=== PATIENT | female | born 1945 | race Caucasian/White ===

== ENCOUNTER 2025-03-09 23:19 | Inpatient (IN) | payer OTHER, SELFPAY ==
[2025-03-09] VITALS (11 sets, daily range): BP systolic 118–134; BP diastolic 71–95
[2025-03-09 17:12] LABS: Hematocrit 21.3 % (37.0-47.0); Mean Corp Hgb Conc. 28.2 g/dL (33.0-37.0); Mean Corpuscular Hgb 19.4 pg (27.0-31.0); Mean Corpuscular Volume 68.9 fL (81.0-99.0); Mean Platelet Volume 9.7 fL (7.4-10.4); Platelet Count 510 10^3/uL (130-400); Red Blood Cell Count 3.09 10^6/uL (4.20-5.40); Red Cell Dist. Width 19.8 % (11.5-14.5); White Blood Cell Count 7.9 10^3/uL (4.8-10.8)
[2025-03-09 17:17] LABS: ALT (SGPT) 12 U/L (0-35); AST (SGOT) 19 U/L (14-36); Albumin 4.1 g/dl (3.5-5.0); Alkaline Phosphatase 63 U/L (38-126); Blood Urea Nitrogen 15 mg/dl (7-17); Carbon Dioxide 22 mmol/L (22-30); Chloride 109 mmol/L (98-107); Glucose 115 mg/dl (70-99); Potassium 4.1 mmol/L (3.5-5.1); Sodium 138 mmol/L (135-145); Total Bilirubin 0.8 mg/dl (0.2-1.3); Total Protein 6.5 g/dl (6.3-8.2); eGFR > 60.00
[2025-03-09 17:36] LABS: Troponin I < 0.012 ng/ml
[2025-03-09 17:43] LABS: % Basophils 0.5 % (0-2); % Eosinophils 0.6 % (0-6); % Immature Granulocytes 0.3 % (0-0.5); % Lymphocytes 20.9 % (20.5-51.1); % Monocytes 9.4 % (1.7-9.3); % Neutrophils 68.3 % (42.2-75.2); Absolute Eosinophils 0.1 10^3/uL (0-0.7); Absolute Lymphocytes 1.7 10^3/uL (1.2-3.4); Absolute Monocytes 0.7 10^3/uL (0.1-0.6); Absolute Neutrophils 5.4 10^3/uL (1.4-6.5); Anisocytosis 2+; Hypochromasia 2+; Macrocytosis 2+; Normal RBC Morphology No; Nucleated Red Blood Cells % 0 %; Ovalocytes 1+; Poikilocytosis 1+; Tear Drop Red Blood Cells 1+
--- NOTE | 2025-03-09 19:53 | ED.GENMED ---
History of Present Illness
General
Chief Complaint: Cardiac Symptoms
Time Seen by Provider: 03/09/25 17:57
History of Present Illness
History of Present Illness:
Patient is a 79-year-old woman with history of atrial fibrillation not on anticoagulation, hypertension, hyperlipidemia presenting to the emergency department with cough and shortness of breath. Patient states for the past few weeks she has had a
chronic cough. Has also been short of breath especially upon exertion. She has also had night sweats. No weight loss. She also had vague chest and back pain. She denies any chest pain. No nausea vomiting. No hemoptysis. She does have a
history of a lung nodule that she supposed to be followed up outpatient. This is never happened to her before
Phy Exam
Physical Exam
Physical Exam:
GENERAL: in no acute distress
HEENT: normocephalic, extraocular movements intact, moist oral mucosa
NECK: normal inspection
RESPIRATORY: no respiratory distress, clear to auscultation bilaterally
CARDIOVASCULAR: regular rate and rhythm,
ABDOMEN/: soft, non-distended, non-tender to palpation, no rebound or guarding, right flank tenderness palpation
EXTREMITIES: non-tender, no edema/swelling
NEUROLOGIC: awake and alert, moves all extremities
SKIN: warm
Course
Orders/Labs/Results
Orders:
Orders
03/09/25 16:38
Electrocardiogram (*1) Urgent
Reason for Study: Chest Pain
EKG- Treatment ONCE
03/09/25 16:52
Complete Blood Count/With Diff Urgent
Comprehensive Metabolic Panel Urgent
Troponin I Urgent
03/09/25 18:13
Blood Bank Products [* Blood Bank Products] Urgent
Blood Bank Products: *Packed RBC Leuko(PRBC's)
Quantity: 1
Transfuse Today: Yes
Reason: Anemia
CT Pe/abd/pel W Urgent
Reason For Exam: sob, flank pain
03/09/25 18:56
Type+Screen Urgent
03/09/25 19:29
ABO2 Urgent
BBK Wristband Number:
Associate notified that ABO2 has been ordered: [id number]
Date: 03/09/25
Time: 19:16
Mold Swabber ID: [id number]
03/09/25 19:44
Urinalysis Reflex To Culture Urgent
Date Specimen was Collected: 03/09/25
Time Specimen was Collected: 16:38
Urine Microscopic Reflex Cult Urgent
Urine Culture Urgent
LEIA Source: U
Specimen Description:
Date Specimen was Collected: 03/09/25
Time Specimen was Collected: 16:38
Abnormal Lab Results
03/09/25 03/09/25 03/09/25
16:52 18:56 19:44
RBC 3.09 L 10^6/uL
(4.20-5.40)
Hgb 6.0 L* g/dL
(12.0-16.0)
Hct 21.3 L %
(37.0-47.0)
MCV 68.9 L fL
(81.0-99.0)
MCH 19.4 L pg
(27.0-31.0)
MCHC 28.2 L g/dL
(33.0-37.0)
RDW 19.8 H %
(11.5-14.5)
Plt Count 510 H 10^3/uL
(130-400)
Absolute Monos (auto) 0.7 H 10^3/uL
(0.1-0.6)
Monocytes % 9.4 H %
(1.7-9.3)
Chloride 109 H mmol/L
(98-107)
Glucose 115 H mg/dl
(70-99)
Leukocyte Esterase Rfl 3+ A
(Negative)
Urine WBC (Reflex) 30-40 A /HPF
(0-5)
Urine Bacteria (Reflex) Many A
(Negative)
Crossmatch IS Only See Detail
03/09/25 16:52
03/09/25 16:52
Vital Signs
Initial and Last Documented VS:
Initial Vital Signs
Temp Pulse Resp BP Pulse Ox
98.5 F 80 16 134/74 98
03/09/25 16:33 03/09/25 16:33 03/09/25 16:33 03/09/25 16:33 03/09/25 16:33
Last Documented Vital Signs
Temp Pulse Resp BP Pulse Ox
98.5 F 77 16 121/79 98
03/09/25 21:05 03/09/25 21:05 03/09/25 21:05 03/09/25 21:05 03/09/25 21:05
MDM/Problems Addressed
Differential Diagnosis Includes:
Patient is a 79-year-old woman presenting to the emergency department with few months of cough shortness of breath and night sweats. On arrival vitals are unremarkable and exam is reassuring. Differential is broad but consists of malignancy, PE,
anemia, atypical ACS. Blood work obtained prior to my evaluation does show hemoglobin of 6 with low MCV. She does have abnormal RBC morphology. Troponin is negative. Will obtain CT PE as well as CT abdomen pelvis.
*Critical Care Note
Total Time (30-74mins, 75-104mins- exclusive of procedures): Not Applicable
Update Note
Update Note:
Urine does have some WBC and leuk though it is slightly contaminated. Patient with no symptoms other than flank pain. She would prefer to hold off on the cultures and starting antibiotics. CT's PE negative and CT abdomen pelvis with constipation.
Regarding patient's hemoglobin I did offer patient transfusion and discharge or admission. After shared decision making given patient's symptoms will admit for repeat hemoglobin check to see if patient needs any additional RBC and possible
hematology consult given the abnormal RBC morphology. Discussed with hospitalist who accepted patient to their service
ED Attending Note
-
Portions of this chart may have been created with voice recognition software.� Occasional wrong word or��sound alike� substitutions may have occurred due to the inherent limitations of voice recognition software.
Discharge Plan
Departure
Patient Disposition: Admit
Date of Disposition: 03/09/25
Time of Disposition: 21:54
Presentation/result/management discussed w/ accepting MD/DO: Hospitalist
Discharge Problem:
Anemia
Referrals:
NONE,* [Family Provider] -
Interventions
Interventions:
*Risk Screen - Suicide Last Done: 03/09/25 16:33
*General Assessment Last Done: 03/09/25 18:57
*Neglect/Abuse Screening Last Done: 03/09/25 16:33
*ED- Fall Risk Assessment Last Done: 03/09/25 18:57
*ED COVID-19 Vaccine History Last Done: 03/09/25 18:57
ED- Pulmonary Assessment Last Done: 03/09/25 19:12
ED- Cardiac Assessment Last Done: 03/09/25 19:12
Discharge Date and Time
Print Language: PERUVIAN
[2025-03-09 19:55] LABS: Urine Albumin Negative (Neg - Trace); Urine Bilirubin Negative (Negative); Urine Character Clear (Clear); Urine Color Yellow; Urine Glucose Negative (Negative); Urine Ketone Negative (Negative); Urine Leukocyte 3+ (Negative); Urine Nitrite Negative (Negative); Urine Occult Blood Negative (Negative); Urine Urobilinogen Negative (Neg - 1+)
[2025-03-09 20:17] LABS: Urine Bacteria Many (Negative); Urine Red Blood Cell 0-2 /HPF (0-2); Urine White Cell 30-40 /HPF (0-5)
--- NOTE | 2025-03-09 22:25 | HPS.HSE ---
Addendum entered and electronically signed by Librado Osullivan DO 03/09/25 22:48:
Nursing reviewed / confirmed meds with via phone.
Usual HTN / IBS regimen ordered.
Original Note:
Family Physician
-
Family Physician: * NONE
Chief Complaint
-
Cough, SOB
History of Present Illness
Patient is a 79y F with PMH significant for hypertension and IBS-D who presents to ED complaining of cough, SOB and edema over a period of months. Patient states that she has had chronic, hacking, on-productive cough for several months. Since
October of this year, she has noted shortness of breath that occurs with activity. Over the past 4 weeks or so, she has noted some swelling in the feet and ankles. Given this constellation of symptoms, patient presented to the ED for further
evaluation.
Initial labs here revealed Hgb = 6 with patient denying any prior history of anemia. We have no prior records / labs / etc here. Patient states that she had labs done last in October - unfortunately she does not have these records.
She also does not have a list of her current meds.
Patient denies any gross evidence of bleeding recently including epistaxis, hemoptysis, hematemesis or hematochezia / melena.
Medical History
Past Medical History
Past Medical History: Reports Other
Additional Past Medical History:
Hypertension
IBS-D
Palpitations / PACs
Hiatal Hernia / GERD
Past Surgical History: Reports Other
Additional Past Surgical History:
Cholecystectomy
R Elbow Surgery x 4
Social History
Tobacco: Non-smoker
Alcohol: None
Drug: None
Family History
Family History: Adopted
Allergies / Home Medications
Allergies reflects when Allergies were last updated in [facility].
Home Medications with original date entered in [facility]
Allergy/Medication List:
Allergies
Allergy/AdvReac Type Severity Reaction Status Date / Time
No Known Allergies Allergy Verified 03/09/25 18:48
Home Medications
Unobtainable 03/09/25
Review of Systems
-
History Source: Patient
A 12 point ROS was completed and negative except as noted: Yes
Constitutional: Reports Fatigue; Denies Fever or Chills
EENT: Denies Sore Throat
Respiratory: Reports Cough and Trouble Breathing; Denies Hemoptysis
Cardiac: Reports Palpitations; Denies Chest Pain or Syncope
Abdomen/GI: Denies Abdominal Pain, Nausea, Vomiting, Diarrhea, Bloody Stools or Black Stools
: Denies Dysuria, Frequency, Flank Pain or Bleeding
Musculoskeletal: Reports Edema; Denies Joint Pain
Neurological: Denies Dizzy or Headache
Psych: Denies Depression or Anxiety
Physical Exam
Vital Signs
Vital Signs
Temp Pulse Resp BP Pulse Ox
98.5 F 77 16 121/79 98
03/09/25 21:05 03/09/25 21:05 03/09/25 21:05 03/09/25 21:05 03/09/25 21:05
Physical Exam
General: Other (79y F in no distress.)
HEENT: Moist mucous membranes and PERRLA
Respiratory: Clear; No Wheezes, Rales or Rhonchi
Cardiac: S1/S2, Regular Rhythm and Murmur (II/ ROXANNA)
GI: Soft, Non Tender, Non Distended and Normal Bowel Sounds
Musculoskeletal: No Clubbing, No Cyanosis and Other (Trace pedal edema.)
Neuro: AO x 3
Laboratory Results
-
03/09/25 16:52
03/09/25 16:52
Laboratory Results
Total Bilirubin 0.8 mg/dl (0.2-1.3) 03/09/25 16:52
AST 19 U/L (14-36) 03/09/25 16:52
ALT 12 U/L (0-35) 03/09/25 16:52
Alkaline Phosphatase 63 U/L (38-126) 03/09/25 16:52
Troponin I < 0.012 ng/ml 03/09/25 16:52
Impression/Plan
-
A/P: Patient is a 79y F with PMH significant for hypertension and IBS-D who presents to ED complaining of months of cough, dyspnea with exertion and LE edema.
Symptomatic Anemia
- Admit for further evaluation and treatment.
- Microcytic anemia - check iron studies, ferritin, etc.
- Heme test stools - especially given noted hiatal hernia on CT scan.
- 1 unit PRBCs ordered in the ED.
- Follow H&H and provide additional transfusion if needed.
- GI evaluation for possible endoscopic examination.
- Try to obtain prior records for review.
CEBALLOS
LE Edema
- Mild but progressive symptoms - potentially due to worsening edema.
- Check Echo for further evaluation.
- Follow I/Os, daily weights, etc.
Benign Hypertension
- Stable. Need to reconcile medications and then reorder as appropriate.
- Patient states that will bring meds in the AM.
IBS-D
- Chronic diarrhea s/p cholecystectomy.
- Patient maintained on chronic med - but does not know the name / dose.
- Reorder once confirmed.
DVT Prophylaxis: SCDs
Code Status: Full
[2025-03-10] VITALS (11 sets, daily range): BP systolic 129–158; BP diastolic 70–93; BMI 25.2
[2025-03-10] MEDS: ZANAFLEX 1 MG PO ×2 (00:59→21:45)
--- NOTE | 2025-03-10 02:10 | PTCARENOTE ---
Patient arrived from ED, via stretcher. OOB from stretcher to bed independently. Patient with no history of falls. VSS. Patient denies pain. Patient presenting with frequent, dry and nonproductive cough. Medications verified. Patient informed to
supply Colestipol from home due to pharmacy not carrying the medication; per patient, she will have her bring in the medication from home. Patient belongings accounted for, including a couple of hundred dollars in r[employer]. This RN did strongly
suggested sending patient's valuables to security but, patient refused. Patient's purse with ritchie, placed in the closet, in the room. Patient oriented to room. Bed in lowest position. Call gregg and personal belongings within reach.
[2025-03-10] MEDS: TESSALON PERLES 100 MG PO (05:42)
[2025-03-10 06:40] LABS: Reticulocyte Count 1.5 % (0.4-2.8)
[2025-03-10 06:53] LABS: Iron 23 ug/dl (37-170)
[2025-03-10 07:02] LABS: Percent Saturation 4 % (20-50); Total Iron Binding Capacity 465 ug/dl (265-497)
[2025-03-10 07:21] LABS: Blood Urea Nitrogen 10 mg/dl (7-17); Calcium 8.8 mg/dl (8.4-10.2); Carbon Dioxide 22 mmol/L (22-30); Chloride 112 mmol/L (98-107); Estimated Creatinine Clearance 54 ml/min; Glucose 100 mg/dl (70-99); Potassium 3.7 mmol/L (3.5-5.1); Sodium 140 mmol/L (135-145); eGFR > 60.00
[2025-03-10 07:26] LABS: Hematocrit 22.5 % (37.0-47.0); Hemoglobin 6.9 g/dL (12.0-16.0); Mean Corp Hgb Conc. 30.7 g/dL (33.0-37.0); Mean Corpuscular Hgb 21.8 pg (27.0-31.0); Mean Corpuscular Volume 71.2 fL (81.0-99.0); Mean Platelet Volume 10.1 fL (7.4-10.4); Platelet Count 428 10^3/uL (130-400); Red Blood Cell Count 3.16 10^6/uL (4.20-5.40); Red Cell Dist. Width 22.2 % (11.5-14.5); White Blood Cell Count 6.4 10^3/uL (4.8-10.8)
[2025-03-10 07:30] LABS: Ferritin 4.1 ng/ml (11.1-264.0)
[2025-03-10] MEDS: DIOVAN 320 MG PO (08:44)
[2025-03-10] MEDS: PROTONIX IV 40 MG IV (08:45)
[2025-03-10] MEDS: TOPROL XL 50 MG PO (08:45)
[2025-03-10] MEDS: NSS (PRESERVATIVE FREE) 10 ML IV (08:45)
--- NOTE | 2025-03-10 10:18 | W.PN.HOSP.TC ---
Today's Communication/Plan
-
transfuse 2 units pRBC
apprec GI
Assessment / Plan
Assessment / Plan
pt is a 79 year old female
Symptomatic Anemia--labs consistent with iron deficiency--patient just had endoscopy and colonoscopy last year [facility] ----no plans for endoscopy or colonoscopy at this time--received 1 unit of packed red blood cells with hemoglobin
improvement to 6.9 from 6.0--will transfuse 2 more units
CEBALLOS/LE Edema--likely from symptomatic anemia--Check Echo for further evaluation if still in house
Essential Hypertension- Stable. Need to reconcile medications and then reorder as appropriate- Patient states that will bring meds in the AM.
IBS-D--Chronic diarrhea s/p cholecystectomy-- Patient maintained on chronic med
DVT Proph-- SCDs
Code Status-- Full
Anticipated Discharge: Within 24 hours
Subjective/Interval History
-
Date of Service: March 10, 2025
pt without c/o--no bleeding that she admits to
Objective Data
-
Labs:
Laboratory Results
03/10/25
06:34
WBC 6.4
Hgb 6.9 L*
Hct 22.5 L
Plt Count 428 H
Sodium 140
Potassium 3.7
Chloride 112 H
Carbon Dioxide 22
BUN 10
Creatinine 0.7
Glucose 100 H
Calcium 8.8
Vital Signs:
max temp for 24 hours
03/10/25
00:54
Temp 99.1 F
Vital Signs
Temp Pulse Resp BP Pulse Ox
98.6 F 88 17 143/85 96
03/10/25 07:20 03/10/25 07:20 03/10/25 07:20 03/10/25 07:20 03/10/25 07:20
I&O
03/09/25 03/10/25 03/11/25
06:59 06:59 06:59
Intake Total 490 / 490
Balance 490 / 490
Review of Systems
-
All other systems: Reviewed and negative
Physical Exam
-
General: Well Developed, Well Nourished and No Apparent Distress
HEENT: Normocephalic and Atraumatic
Respiratory: Clear to Auscultation; Negative Wheezes or Rhonchi
Cardiac: Regular Rhythm and S1/S2; Negative Murmur
GI: Soft, Nontender, Nondistended and Normal Bowel Sounds
Musculoskeletal: No Clubbing, No Cyanosis, No Edema and Other (malformed right elbow)
Neuro: Awake
--- NOTE | 2025-03-10 12:45 | CON.GI ---
Consultation
-
Date/Time Consultation Requested: 03/10/2025
Date/Time Consultation Performed: 03/10/2025
Performing Provider: Rusty Crenshaw
Reason for Consultation: anemia
Medical History
Chief Complaint / HPI
Chief Complaint: anemia
History of Present Illness:
79 year-old woman with h/o afib not on anticoagulation, HTN, and hyperlipidemia p/w symptomatic anemia w/ dyspnea on exertion. She denies melena, rectal bleeding, or vomiting. Takes NSAID occasionally (every 2 weeks or so). She reports having
unremarkable EGD/colonoscopy in recent past (within 1 year ago but later stated otherwise).
Past Medical History
Past Medical History: GERD, HTN and Hypercholesterolemia
Past Surgical History: Cholecystectomy and Other
Social History
Tobacco: Non-Smoker
Alcohol: None
Allergies / Home Medications
Allergy/AdvReac Type Severity Reaction Status Date / Time
No Known Allergies Allergy Verified 03/09/25 18:48
�Medication �Instructions �Recorded
amlodipine 5 mg tablet 5 mg PO HS Blood Pressure 03/09/25
atorvastatin 20 mg tablet 20 mg PO HS High Cholesterol 03/09/25
colestipol 1 gram tablet 2 g PO BID Antilipemic Agent 03/09/25
duloxetine 30 mg capsule,delayed 30 mg PO DAILY Mental 03/09/25
release Health/Anxiety
metoprolol succinate 50 mg 50 mg PO DAILY Blood Pressure 03/09/25
tablet,extended release 24 hr
tizanidine 2 mg capsule 1 mg PO HS Muscle Spasms 03/09/25
valsartan 320 mg PO DAILY Blood Pressure 03/09/25
Review of Systems
Vital Signs
Temp Pulse Resp BP Pulse Ox
98 F 76 16 152/86 96
03/10/25 12:26 03/10/25 12:26 03/10/25 12:26 03/10/25 12:26 03/10/25 07:20
Physical Exam
Exam
General: Well Developed and Well Nourished
HEENT: Normocephalic
Respiratory: Clear
Cardiac: S1/S2
GI: Soft, Non Tender, Non Distended and Normal Bowel Sounds
Results
WBC 6.4 10^3/uL (4.8-10.8) 03/10/25 06:34
Hgb 6.9 g/dL (12.0-16.0) L* 03/10/25 06:34
Hct 22.5 % (37.0-47.0) L 03/10/25 06:34
MCV 71.2 fL (81.0-99.0) L 03/10/25 06:34
Plt Count 428 10^3/uL (130-400) H 03/10/25 06:34
Absolute Neuts (auto) 5.4 10^3/uL (1.4-6.5) 03/09/25 16:52
Sodium 140 mmol/L (135-145) 03/10/25 06:34
Potassium 3.7 mmol/L (3.5-5.1) 03/10/25 06:34
Chloride 112 mmol/L (98-107) H 03/10/25 06:34
Carbon Dioxide 22 mmol/L (22-30) 03/10/25 06:34
BUN 10 mg/dl (7-17) 03/10/25 06:34
Creatinine 0.7 mg/dL (0.6-1.0) 03/10/25 06:34
Calcium 8.8 mg/dl (8.4-10.2) 03/10/25 06:34
Total Bilirubin 0.8 mg/dl (0.2-1.3) 03/09/25 16:52
AST 19 U/L (14-36) 03/09/25 16:52
ALT 12 U/L (0-35) 03/09/25 16:52
Alkaline Phosphatase 63 U/L (38-126) 03/09/25 16:52
Diagnostic Image Results:
Prior GI Procedures:
EGD:
Colonoscopy:
Assessment / Plan
-
79 year-old woman with h/o afib not on anticoagulation, HTN, and hyperlipidemia p/w symptomatic anemia w/ dyspnea on exertion.
Impression / Rec:
1. Microcytic anemia - she denies s/s of GIB such as melena, rectal bleeding, or vomiting. Denies abdominal pain. Occasional NSAID use (every 2 weeks or so). Previously also had EGD/colonoscopy which were unremarkable (the timing is unclear as
she told me within 1 year ago which later changed her story). Waiting for stool to check for FOBT. Given this, no need for endoscopic evaluation at this time. Whether she needs repeat EGD/colonoscopy and when can be determined by her OP
pourer bull ladle or by us if she chooses to follow us as OP. GI s/o, call w/ questions.
Total Time Spent with Patient (in minutes): 55
-
-
Thank you for consultation and allowing me to participate in the patient's care. Please call the [facility] GI physician during the after hours with any questions or concerns.
[2025-03-10] MEDS: IMODIUM 2 MG PO (15:02)
[2025-03-10] MEDS: NORVASC 5 MG PO (21:45)
[2025-03-10] MEDS: ROBITUSSIN DM 5 ML PO (21:53)
[2025-03-11 02:53] VITALS: BP 141/86
[2025-03-11 07:25] VITALS: BP 154/87
[2025-03-11] MEDS: TOPROL XL 50 MG PO (08:06)
[2025-03-11] MEDS: DIOVAN 320 MG PO (08:06)
[2025-03-11] MEDS: PROTONIX IV 40 MG IV (08:06)
[2025-03-11] MEDS: NSS (PRESERVATIVE FREE) 10 ML IV (08:07)
[2025-03-11 09:24] LABS: Hematocrit 36.6 % (37.0-47.0); Hemoglobin 11.4 g/dL (12.0-16.0); Mean Corp Hgb Conc. 31.1 g/dL (33.0-37.0); Mean Corpuscular Hgb 23.2 pg (27.0-31.0); Mean Corpuscular Volume 74.5 fL (81.0-99.0); Mean Platelet Volume 9.8 fL (7.4-10.4); Platelet Count 432 10^3/uL (130-400); Red Blood Cell Count 4.91 10^6/uL (4.20-5.40); Red Cell Dist. Width 21.3 % (11.5-14.5); White Blood Cell Count 8.2 10^3/uL (4.8-10.8)
[2025-03-11 10:44] VITALS: BP 123/82
[2025-03-11] MEDS: FERRLECIT 110 MG IV (13:00)
[2025-03-11] MEDS: IMODIUM 2 MG PO (13:01)
--- NOTE | 2025-03-11 13:17 | W.PN.HOSP.TC ---
Addendum entered and electronically signed by Elvis Sanchez MD 03/11/25 13:36:
Time of discharge 38 minutes
Original Note:
Today's Communication/Plan
-
Monitor vitals
See plan
IV iron dose today, transition to p.o. iron on discharge
Discussed with family and GI, discharge today with outpatient follow-up
Assessment / Plan
Assessment / Plan
pt is a 79 year old female
Symptomatic Anemia--labs consistent with iron deficiency--patient just had endoscopy and colonoscopy last year [facility] ----no plans for endoscopy or colonoscopy at this time--received 3 units PRBC. Hemoglobin now 11.4. Heme test stool
negative per RN. Discussed with patient and her spouse, started on IV iron. Discussed with GI and they will follow-up with patient outpatient. Also advised patient to follow-up with hematology outpatient.
Give dose of IV iron, transition to p.o. iron on discharge
CEBALLOS/LE Edema--likely from symptomatic anemia--echo 03/11 with normal EF
Essential Hypertension- Stable.
IBS-D--Chronic diarrhea s/p cholecystectomy-- Patient maintained on chronic med
DVT Proph-- SCDs
Code Status-- Full
General: Well Developed, Well Nourished and No Apparent Distress
HEENT: Normocephalic and Atraumatic
Respiratory: Clear to Auscultation; Negative Wheezes or Rhonchi
Cardiac: Regular Rhythm and S1/S2; Negative Murmur
GI: Soft, Nontender, Nondistended and Normal Bowel Sounds
Musculoskeletal: No Clubbing, No Cyanosis, No Edema and Other (malformed right elbow)
Neuro: Awake
Anticipated Discharge: Today
Subjective/Interval History
-
Date of Service: March 11, 2025
denies pain
Objective Data
-
Labs:
Laboratory Results
03/11/25
08:36
WBC 8.2
Hgb 11.4 L D
Hct 36.6 L
Plt Count 432 H
Vital Signs:
Vital Signs
Temp Pulse Resp BP Pulse Ox
98.4 F 72 18 123/82 96
03/11/25 10:44 03/11/25 10:44 03/11/25 10:44 03/11/25 10:44 03/11/25 10:44
I&O
03/10/25 03/11/25 03/12/25
06:59 06:59 06:59
Intake Total 490 / 490 1460 / 1460
Balance 490 / 490 1460 / 1460
--- NOTE | 2025-03-11 13:36 | W.DCSUMMARY ---
Discharge Summary
Discharge Data
Date of Admission: 03/09/25
Date of Discharge: 03/11/25
-
Pending Results: No
Hospital Course
79-year-old female with past medical history of essential hypertension, IBS came to the hospital with symptomatic anemia. Upon labs, they were consistent with iron deficiency anemia. Patient was seen by gastroenterology and was recommended
outpatient follow-up for possible need for endoscopy and colonoscopy. Patient required blood transfusion while she was here and her hemoglobin improved to 11.4. Heme test stool was done and was negative. Patient vital signs were stable prior to
discharge. For her iron deficiency anemia, she was also started on IV iron which was later transitioned to p.o. iron prior to discharge. On discharge she was also instructed to follow-up with hematology/oncology outpatient. Since patient symptoms
continue to improve and she was able to tolerate diet, she was then discharged home with instructions to follow-up with all her physicians outpatient.
Discharge Plan
-
Patient Disposition: Home (Routine Discharge)
Discharge Diagnosis/Procedures: Symptomatic anemia with iron deficiency, dyspnea on exertion/lower extremity edema, essential hypertension, irritable bowel syndrome with diarrhea
Condition: Good
Diet: As tolerated and Regular
Activity: As tolerated
Driving Restrictions: As prior to admission
Bathing Restrictions: None
Blood Work: CBC later this week with primary care provider
Activity Restrictions/Additional Instructions:
Follow-up with director dermatology/oncologist outpatient
Referrals:
Emma Alicea MD [Active] -
Rusty Crenshaw MD [Active] -
NONE,* [Family Provider] - in less than 1 week
Prescriptions:
New
pantoprazole [Protonix] 40 mg tablet,delayed release (DR/EC)
40 mg PO DAILY Qty: 30 0RF
ferrous sulfate 325 mg (65 mg iron) tablet
325 mg PO DAILY Qty: 30 0RF
Continued
atorvastatin 20 mg Tablet
20 mg PO HS
metoprolol succinate 50 mg Tablet Extended Release 24 Hr
50 mg PO DAILY
amlodipine 5 mg Tablet
5 mg PO HS
colestipol 1 gram Tablet
2 g PO BID
duloxetine 30 mg Capsule,Delayed Release(Dr/Ec)
30 mg PO DAILY
tizanidine 2 mg Capsule
1 mg PO HS
valsartan
320 mg PO DAILY
Discharge Orders:
Discharge Patient (As Directed); Ordered 03/11/25
Ordered By: Elvis Sanchez
Discharge Date and Time
Discharge Date/Time: 03/11/25 15:29
Print Language: TELUGU
--- NOTE | 2025-03-11 14:40 | CM ---
digital learning platforms manager reviewed patient's chart and met with patient and patient lives with her spouse in a multilevel home, patient is independent with adl's and ambulation, no dme, patient drives, patient's spouse is a physician, home today no needs.
PCP: [facility]
Pharmacy; [facility].
Plan; Home today no needs.
== END 2025-03-11 15:29 | disposition home or self-care (01) | DRG 812 ==
LOC: 4 WEST ACU 23:19
PROVIDERS: Internal Medicine; Student in an Organized Health Care Education/Training Program; ADMITTING PHYSICIAN Hospitalist; ATTENDING PHYSICIAN Internal Medicine; CONSULT PHYSICIAN Internal Medicine Gastroenterology; EMERGENCY PHYSICIAN Student in an Organized Health Care Education/Training Program
PROC: 30233N1 Transfusion of Nonautologous Red Blood Cells into Peripheral Vein, Percutaneous Approach (ICD-10-PCS; 2025-03-09)
DX: D50.9 Iron deficiency anemia, unspecified (principal); K58.0 Irritable bowel syndrome with diarrhea; I10 Essential (primary) hypertension; Z90.49 Acquired absence of other specified parts of digestive tract
CPT/HCPCS: 36430; 71275; 74177; 80048; 80053; 81003; 81015; 82728; 83540; 83550; 84484; 85025; 85027; 85045; 86850; 86900; 86901; 86920; 87077; 87086; 87186; 93005; 93306; 99285; J2916; P9016; Q9967